=== PATIENT | male | born 1980 | race Caucasian/White ===

== ENCOUNTER 2020-04-13 19:56 | Emergency (ER) | payer SELFPAY ==
[~2020-04-13] VITALS: Ht 188 cm; Wt 120.2 kg
[2020-04-13] MEDS ORDERED: IBU800 MG PO (21:11)
[2020-04-13] MEDS ORDERED: Percocet 5-3251 EACH PO (21:11)
== END 2020-04-13 21:29 | disposition home or self-care (01) ==
LOC: ER 19:56
DX: S62.202A Unspecified fracture of first metacarpal bone, left hand, initial encounter for closed fracture (principal); W17.89XA Other fall from one level to another, initial encounter; Y92.008 Other place in unspecified non-institutional (private) residence as the place of occurrence of the external cause
CPT/HCPCS: 29125; 73130; 99283-25; A9270